=== PATIENT | male | born 1960 | race Caucasian/White ===

== ENCOUNTER 2021-02-25 00:37 | Day surgery (SDC) | payer BC, SELFPAY ==
[2021-02-08 10:44] VITALS: BMI 26.5
[2021-02-25 06:50] VITALS: BP 136/83; PULSE 90; RESP 18; TEMP 36.7; O2SAT 100; BMI 25.5
--- NOTE | 2021-02-25 07:34 | WPDANESEPPF ---
Anes - Initial Pre Proc Eval Procedure: Operation Date: 02/25/21 08:00 Proposed Procedures p Screening Colonoscopy - Suraj Ho MD Date/Time: 02/25/21 07:34 Surgeon: Suraj Ho MD Pre Op Diagnosis: neoplasm screening Patient Data Age: 60 Gender: M Height: 1.78 m Weight: 80.9 kg Last Vital Signs Temp 36.7 C 02/25/21 06:50 Pulse 90 02/25/21 06:50 Resp 18 02/25/21 06:50 BP 136/83 02/25/21 06:50 Pulse Ox 100 02/25/21 06:50 Allergies Allergy/AdvReac Type Severity Reaction Status Date / Time tramadol Allergy Palpitation Verified 02/25/21 06:58 s oxycodone AdvReac stomach Verified 02/25/21 06:58 problems Home Medications Medication Instructions Recorded Confirmed Type diclofenac sodium 75 mg 75 mg PO BID 10/09/20 02/25/21 History tablet,delayed release temazepam 30 mg capsule 30 mg PO QHS 10/09/20 02/25/21 History buspirone 5 mg PO PRN PRN 02/08/21 02/25/21 History Patient hx anesthesia problems: none Family hx anesthesia problems: none Results Review: All pre-operative results and documents have been reviewed as part of the pre-operative evaluation. 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 Informed Consent: The patient's anesthetic plan and its attendant risks and benefits were discussed with the patient/family/POA. Questions were solicited and answers provided to the satisfaction of the patient/family/POA.
[2021-02-25] MEDS: LACTATED RINGERS 1,000 ML 150 ML IV CONT (07:39)
--- NOTE | 2021-02-25 07:46 | PM.HPGS ---
History of Present Illness History of Present Illness Consent: Risks, benefits, and alternatives have been discussed and questions answered. Patient agrees to proceed with procedure. Chief complaint: neoplasm screening Narrative: Vinny Stafford is a 60 year old male here for screening colonoscopy, last one 12 years ago. Review of Systems Constitutional: Constitutional: Denies headache(s) and Denies weakness Eyes: Eyes: Denies blurry vision ENT: Reports Normal hearing present, Denies headache(s) and Denies neck pain Cardiovascular: Cardiovascular: Denies chest pain and Denies dyspnea Respiratory: Respiratory: Denies dyspnea Gastrointestinal: Gastrointestinal: Reports no additional gastrointestinal complaints Genitourinary: Genitourinary: Denies dysuria Musculoskeletal: Musculoskeletal: Denies neck pain Integumentary/Breasts: Skin/Breast: Denies dry skin Neurologic: Reports Normal hearing present, Denies headache(s) and Denies weakness Psychiatric: Psychiatric: Denies anxiety Endocrine: Endocrine: Denies change in body appearance Hematologic/Lymphatic: Hematologic/Lymphatic: Denies easy bleeding Allergic/Immunologic: Allergic/Immunologic: Denies urticaria PMFSH Past Medical History Medical History (Updated 02/25/21 @ 07:47 by Suraj Ho MD) Colon cancer screening Psoriatic arthritis Surgical History Surgical History H/O elbow surgery History of repair of rotator cuff Hx of appendectomy Family History Family History Sibling , age 61 Heart disease Diabetes mellitus Acute myocardial infarction Social History Social History Smoking status: Never smoker Alcohol intake: current Substance use: never Substance use type: does not use Living arrangements: with family 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 Spiritual care concerns: No Meds Home Medications and Allergies Home Medications Medication Instructions Recorded Confirmed Type diclofenac sodium 75 mg 75 mg PO BID 10/09/20 02/25/21 History tablet,delayed release temazepam 30 mg capsule 30 mg PO QHS 10/09/20 02/25/21 History buspirone 5 mg PO PRN PRN 02/08/21 02/25/21 History Allergies Allergy/AdvReac Type Severity Reaction Status Date / Time tramadol Allergy Palpitation Verified 02/25/21 06:58 s oxycodone AdvReac stomach Verified 02/25/21 06:58 problems Vital Signs Vital Signs - 24 hr 02/25/21 06:50 Temperature 98.0 F Pulse Rate 90 Respiratory Rate 18 Blood Pressure 136/83 Pulse Oximetry 100 Exam Const: General: comfortable and no acute distress HENMT: General nose exam: Normal nares present Eyes: General: appearance normal, both eyes and all related structures Neck: Neck: no JVD Resp: Auscultation: clear to auscultation bilaterally Cardio: Rate: regular rate Rhythm: regular rhythm GI: Inspection: non-distended GI Palp: Yes Soft to palpation Skin: General skin exam: normal color Neuro: General: gait normal Speech: normal speech Extrem: General: normal to inspection Psych: Mental Status: mental status grossly normal Assessment and Plan Assessment and plan (1) Colon cancer screening: Code(s): Z12.11 - Encounter for screening for malignant neoplasm of colon Status: Acute Assessment and Plan: colonoscopy
[2021-02-25 08:04] VITALS: BP 108/79; PULSE 95; RESP 13; O2SAT 95
[2021-02-25 08:14] VITALS: BP 109/80; PULSE 68; RESP 17; O2SAT 97
[2021-02-25 08:24] VITALS: BP 115/82; PULSE 82; RESP 16; O2SAT 100
== END 2021-02-25 08:44 | disposition home or self-care (01) ==
PROVIDERS: PCP Internal Medicine Infectious Disease; Visit Provider Internal Medicine Gastroenterology
PROC: 0DJD8ZZ Inspection of Lower Intestinal Tract, Via Natural or Artificial Opening Endoscopic (ICD-10-PCS; CPT 45378; principal; 2021-02-25 08:00)
DX: Z12.11 Encounter for screening for malignant neoplasm of colon (principal); K57.30 Diverticulosis of large intestine without perforation or abscess without bleeding; K64.8 Other hemorrhoids; L40.50 Arthropathic psoriasis, unspecified
CPT/HCPCS: 45378; J2704; J7120

== ENCOUNTER 2021-10-21 01:10 | Day surgery (SDC) | payer BC, SELFPAY ==
[2021-10-14 15:14] VITALS: BMI 23.3
[2021-10-21 07:10] VITALS: BMI 23.3
[2021-10-21 07:12] VITALS: BP 113/90; PULSE 71; RESP 18; TEMP 36.1; O2SAT 100
[2021-10-21] MEDS: LACTATED RINGERS 1,000 ML 150 ML IV CONT (07:19)
--- NOTE | 2021-10-21 07:55 | WPDANESEPPF ---
Anes - Initial Pre Proc Eval Procedure: Operation Date: 10/21/21 08:15 Proposed Procedures p Esophagogastroduodenoscopy - Suraj Ho MD Date/Time: 10/21/21 07:55 Surgeon: Suraj Ho MD Pre Op Diagnosis: epigastric pain Patient Data Age: 61 Gender: M Height: 1.78 m Weight: 74 kg Last Vital Signs Temp 36.1 C L 10/21/21 07:12 Pulse 71 10/21/21 07:12 Resp 18 10/21/21 07:12 BP 113/90 10/21/21 07:12 Pulse Ox 100 10/21/21 07:12 O2 Del Method Room Air 10/21/21 07:12 Allergies Allergy/AdvReac Type Severity Reaction Status Date / Time tramadol Allergy Palpitation Verified 10/21/21 07:07 s oxycodone AdvReac stomach Verified 10/21/21 07:07 problems Home Medications Medication Instructions Recorded Confirmed Type temazepam 30 mg capsule 30 mg PO QHS 10/09/20 10/21/21 History buspirone 5 mg tablet 5 mg PO PRN PRN Anxiety 02/08/21 10/21/21 History atorvastatin 20 mg tablet 20 mg PO DAILY 09/26/21 10/21/21 History omeprazole 20 mg capsule,delayed 20 mg PO DAILY #30 caps 09/26/21 10/21/21 Rx release acetaminophen 650 mg 650 mg PO DAILY 10/14/21 10/21/21 History tablet,extended release (Tylenol Arthritis Pain) Patient hx anesthesia problems: none Family hx anesthesia problems: none Results Review: All pre-operative results and documents have been reviewed as part of the pre-operative evaluation. 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 Informed Consent: The patient's anesthetic plan and its attendant risks and benefits were discussed with the patient/family/POA. Questions were solicited and answers provided to the satisfaction of the patient/family/POA.
--- NOTE | 2021-10-21 08:06 | WPDHPUPDATE1 ---
History and Physical Update Update Date/Time: 10/21/21 08:06 History and Physical has been reviewed, including an updated exam of the patient. There are NO changes in the patient's condition. Risks, benefits, and alternatives have been discussed and questions answered. Patient agrees to proceed with procedure.
[2021-10-21 08:14] VITALS: BP 98/69; PULSE 75; RESP 18; O2SAT 98
[2021-10-21 08:24] VITALS: BP 110/77; PULSE 72; RESP 21; O2SAT 98
[2021-10-21 08:34] VITALS: BP 113/78; PULSE 65; RESP 11; O2SAT 98
== END 2021-10-21 08:43 | disposition home or self-care (01) ==
PROVIDERS: PCP Internal Medicine Infectious Disease; Visit Provider Internal Medicine Gastroenterology
PROC: 0DJ08ZZ Inspection of Upper Intestinal Tract, Via Natural or Artificial Opening Endoscopic (ICD-10-PCS; CPT 43235; principal; 2021-10-21 08:15)
DX: R10.13 Epigastric pain (principal); K29.50 Unspecified chronic gastritis without bleeding; L40.50 Arthropathic psoriasis, unspecified; Z79.1 Long term (current) use of non-steroidal anti-inflammatories (NSAID)
CPT/HCPCS: 43239; 88305; J2704; J7120

== ENCOUNTER 2021-10-24 14:29 | Outpatient (CLI) | payer BC, SELFPAY ==
--- NOTE | ~2021-10-24 | CT_ITS ---
EXAMINATION: CT abdomen pelvis w con DATE: 10/24/2021 15:07 INDICATION: Epigastric abdominal pain. Weight loss. TECHNIQUE: Computed tomography (CT) of the abdomen and pelvis was performed with 100 CC Omnipaque 350 intravenous contrast. Automated exposure control and iterative reconstruction technique were employe d. Exam dose: 363.41 mGy-cm total exam DLP. COMPARISON: 07/22/2018 CT abdomen pelvis FINDINGS: The lung bases are clear of infiltrate or consolidation. Normal heart size. No pericardial or pleural effusion. The liver, spleen and pancreas as well as the adrenal glands appear normal. There is a small stone of approximately 3 mm dimension in the dependent aspect of the gallbladder. No gallbladder wall thickening or pericholecystic fluid or fat stranding. No bile duct dilatation. No p ancreatic calcification or ductal dilatation. There are several stable left renal cysts, the largest approximately 1.2 cm cyst at the lateral aspec t of the mid left kidney. The kidneys are otherwise unremarkable. No urinary tract calculus or hydrou reteronephrosis. Prostate enlargement. The urinary bladder is unremarkable. Normal caliber of the abdominal aorta. No intraperitoneal or retroperitoneal or pelvic mass lesion or adenopathy or ascites. There is minimal diverticulosis of the colon; no CT evidence of diverticulitis. No bowel obstruction or intraperitoneal free air. Small fat-containing umbilical hernia. No suspicious osteolytic or osteoblastic lesions. IMPRESSION: Cholelithiasis Left renal cysts Prostate enlargement Minimal diverticulosis of the colon Reviewed, dictated and finalized at [facility]. Reviewed, dictated and finalized at location B.
[2021-10-24 15:02] LABS: Estimated Glomerular Filt Rate > 60
== END 2021-10-24 14:30 | disposition home or self-care (01) ==
PROVIDERS: PCP Internal Medicine Infectious Disease; Visit Provider Internal Medicine Infectious Disease
DX: R63.4 Abnormal weight loss (principal); R10.13 Epigastric pain; K80.20 Calculus of gallbladder without cholecystitis without obstruction; N28.1 Cyst of kidney, acquired; N40.0 Benign prostatic hyperplasia without lower urinary tract symptoms; K57.30 Diverticulosis of large intestine without perforation or abscess without bleeding
CPT/HCPCS: 74177; Q9967

== ENCOUNTER → 2022-01-03 09:41 | Outpatient (CLI) | payer BC, SELFPAY ==
--- NOTE | ~2022-01-03 | XR_ITS ---
XR hand LT 2V DATE: 01/03/2022 10:08 INDICATION: Multiple joint pain. Left hand and wrist pain. TECHNIQUE: AP and lateral views COMPARISON: None FINDINGS: Triangular cartilage chondrocalcinosis. Narrowing at the joint between the lunate and capitate bones. Severe joint space narrowing and prominent sclerosis and periarticular spurring at the triscaphe join t. Mild osteoarthritis at the first carpometacarpal joint. There is mild osteoarthritis at the first through third metacarpophalangeal joints. No erosive change is noted. No fracture, dislocation, periosteal reaction or bone destruction. IMPRESSION: , Calcinosis at the triangular cartilage Polyarticular osteoarthritis, particularly severe at the triscaphe joint Reviewed, dictated and finalized at location A. /GYN PHYSICIAN
--- NOTE | ~2022-01-03 | XR_ITS ---
XR wrist LT 2V DATE: 01/03/2022 10:08 INDICATION: Multiple joint pain. Left wrist pain. TECHNIQUE: AP and lateral views COMPARISON: None FINDINGS: Subarticular prominent distal medial radial cyst. Prominent benign cystic change subjacent to the ulnar styloid process. There is severe joint space narrowing and prominent particular spurring and sclerosis at the triscaph e joint. There is narrowing at the articulation of the lunate and capitate bones. There is mild osteoarthritis at the first carpometacarpal joint. Triangular cartilage chondrocalcinosis. No fracture or dislocation, periosteal reaction or bone destruction. IMPRESSION: Polyarticular arthritis, particularly severe at the triscaphe joint Irregular cartilage chondrocalcinosis Reviewed, dictated and finalized at location A. ORAL MINISTRIES PROFESSOR
--- NOTE | ~2022-01-03 | XR_ITS ---
EXAMINATION: XR foot RT 2V DATE: 01/03/2022 10:08 INDICATION: Multiple joint pain. TECHNIQUE: 2 views of right foot were obtained. COMPARISON: None. FINDINGS: Bone alignment is normal. No fracture. There is mild osteoarthritis of the intermediate hamzah onavicular joint. IMPRESSION: 1. Mild osteoarthritis of intermediate talonavicular joint. Reviewed, dictated and finalized at location A. TORING ENGINEER
--- NOTE | ~2022-01-03 | XR_ITS ---
XR hand RT 2V DATE: 01/03/2022 10:08 INDICATION: Multiple joint pain TECHNIQUE: AP and lateral views COMPARISON: None FINDINGS: There is narrowing at the articulation of the lunate and capitate bones and prominent benig n likely OsteoArthritic cyst formation at the lunate bone. There is severe narrowing at the triscaphe joint with very prominent sclerosis particular spurring. Mild osteophyte is at first carpometacarpal joint. Mild osteophyte is at the first through third metacarpophalangeal joints. No fracture or dislocation, periosteal reaction or bone destruction. IMPRESSION: Polyarticular osteoarthritis, particularly severe at the triscaphe joint Reviewed, dictated and finalized at location A. ANTY CLERK
--- NOTE | ~2022-01-03 | XR_ITS ---
EXAMINATION: XR foot LT 2V DATE: 01/03/2022 10:08 INDICATION: Multiple joint pain. TECHNIQUE: 2 views of left foot were obtained. COMPARISON: None. FINDINGS: Bone alignment is normal. No fracture. There is mild osteoarthritis of talonavicular joint and fifth proximal interphalangeal joint. There is an enthesophyte at plantar aspect of calcaneal tub erosity. IMPRESSION: 1. Mild polyarticular osteoarthritis. Reviewed, dictated and finalized at location A. LE REPORTS DEVELOPER
--- NOTE | ~2022-01-03 | XR_ITS ---
XR wrist RT 2V DATE: 01/03/2022 10:08 INDICATION: Multiple joint pain. Right wrist pain. TECHNIQUE: AP and lateral views COMPARISON: None FINDINGS: There is prominent narrowing at the joint between the lunate and capitate bones. There is s evere joint space narrowing and spurring at the triscaphe joint. There is particular spurring consistent with mild osteophyte is at the first carpometacarpal joint. No fracture or dislocation, periosteal reaction or bone destruction. IMPRESSION: Polyarticular osteoarthritis, particularly severe at the triscaphe joint Reviewed, dictated and finalized at location A. T MECHANIC
--- NOTE | ~2022-01-03 | XR_ITS ---
XR sacroiliac joints min 3V DATE: 01/03/2022 10:08 INDICATION: Multiple joint pain TECHNIQUE: AP and bilateral oblique views COMPARISON: None FINDINGS: No erosive change, fracture, dislocation or ankylosis or significant degenerative change at the sacroiliac joints. IMPRESSION: Negative sacroiliac joints Reviewed, dictated and finalized at Location [facility]. Reviewed, dictated and finalized at location A. RVISOR TREE TRIMMING IMPRESSION: Negative sacroiliac joints
--- NOTE | ~2022-01-03 | XR_ITS ---
XR ankle RT 2V DATE: 01/03/2022 10:08 INDICATION: Right ankle pain. Multiple joint pain. TECHNIQUE: AP and lateral views COMPARISON: None FINDINGS: No fracture or dislocation of the ankle or disruption of the ankle mortise. No periosteal r eaction or bone destruction. IMPRESSION: Negative Reviewed, dictated and finalized at location A. 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
--- NOTE | ~2022-01-03 | XR_ITS ---
XR ankle LT 2V DATE: 01/03/2022 10:08 INDICATION: Left ankle pain TECHNIQUE: AP and lateral views COMPARISON: None FINDINGS: There is periarticular spurring of the tibiotalar joint consistent with osteoarthritis. Plantar calcaneal enthesopathy without associated erosive change or periostitis. No fracture or dislocation of the ankle or disruption of ankle mortise. No periosteal reaction or bon e destruction. IMPRESSION: Tibiotalar osteoarthritis Plantar calcaneal enthesopathy Reviewed, dictated and finalized at location A. RNATIVE MEDICINE PRACTITIONER
== END ==
PROVIDERS: PCP Internal Medicine Infectious Disease; Visit Provider Internal Medicine Rheumatology
DX: M79.10 Myalgia, unspecified site (principal); M19.071 Primary osteoarthritis, right ankle and foot; M19.072 Primary osteoarthritis, left ankle and foot; M19.041 Primary osteoarthritis, right hand; M19.042 Primary osteoarthritis, left hand; M19.031 Primary osteoarthritis, right wrist; M19.032 Primary osteoarthritis, left wrist; M77.32 Calcaneal spur, left foot
CPT/HCPCS: 72202; 73100; 73120; 73600; 73620

== ENCOUNTER 2024-09-13 10:49 | Outpatient (CLI) | payer BC, SELFPAY ==
--- NOTE | ~2024-09-13 | MR_ITS ---
EXAMINATION: MR brain/brain stem wo/w con DATE: 09/13/2024 11:39 INDICATION: Paresthesias of skin. Memory loss. TECHNIQUE: Magnetic resonance imaging (MRI) of the brain and brainstem was performed without and with 15 mL Multihance intravenous contrast. Sequences included sagittal and axial T1-weighted SE, axial d iffusion-weighted FS SE, axial T2*-weighted GRE, axial T2-weighted FLAIR, and axial T2-weighted FSE. Postcontrast axial and coronal T1-weighted SE was obtained. Apparent diffusion coefficient (ADC) maps were created. COMPARISON: None. FINDINGS: There are no areas of restricted diffusion to suggest acute infarction. No intracranial hemorrhage or abnormal intracranial mass lesion. There are a couple tiny foci of increased T2-weighted signal inte nsity in the left frontal lobe cerebral white matter, which is within normal limits for age and likel y sequela of chronic small vessel ischemic disease. There are no intraparenchymal signal abnormalitie s seen on the other pulse sequences. The ventricles are symmetric and normal in size. There are no ab normal extra-axial fluid collections. Flow voids are seen in the cerebral arteries on the T2-weighted sequences consistent with their expected patency. Minimal right mastoid effusion. Visualized orbits and soft tissues are unremarkable. There are no areas of abnormal enhancement on the post contrast im ages. IMPRESSION: 1. Normal for age brain with no acute intracranial process or abnormally enhancing brain lesions. Reviewed, dictated and finalized at location A. IMPRESSION: 1. Normal for age brain with no acute intracranial process or abnormally enhanc ing brain lesions.
== END 2024-09-13 10:50 | disposition home or self-care (01) ==
LOC: MICIMG 10:49
PROVIDERS: PCP Internal Medicine Infectious Disease
DX: R20.2 Paresthesia of skin (principal); R41.3 Other amnesia
CPT/HCPCS: 70553; A9577

== ENCOUNTER 2024-11-07 15:58 | Outpatient (CLI) | payer BC, SELFPAY ==
--- NOTE | ~2024-11-07 | XR_ITS ---
EXAM/ PROCEDURE: XR foot RT min 3V, XR foot LT min 3V - 11/07/2024 16:03 CDT HISTORY: 64 years old Male with Rheumatoid arthritis without rheumatoid factor, unspecified COMPARISON: None available TECHNIQUE: Four view(s) each FINDINGS/ IMPRESSION: There are no fractures or dislocations.Joint space narrowing, subchondral sclerosis, subchondral cyst formation and osteophyte formation, compatible with mild osteoarthritis/degenerative changes of both feet. Calcaneal enthesopathy of the left calcaneus. Reviewed, dictated and finalized at location N.
== END 2024-11-07 15:59 | disposition home or self-care (01) ==
LOC: MICIMG 15:59
PROVIDERS: PCP Internal Medicine Infectious Disease; Visit Provider Nurse Practitioner Family
DX: M06.00 Rheumatoid arthritis without rheumatoid factor, unspecified site (principal); M77.32 Calcaneal spur, left foot
CPT/HCPCS: 73630